=== PATIENT | male | born 1955 | race Caucasian/White ===

== ENCOUNTER 2023-11-12 08:21 | Outpatient (CLI) | payer MEDICARE, BC | END 2023-11-12 08:22 | disposition home or self-care (01) | LOC: NM 08:21 | PROVIDERS: ATTEND Urology | DX: C61 Malignant neoplasm of prostate (principal) | CPT/HCPCS: 78306; A9503 ==

== ENCOUNTER 2024-05-05 13:23 | Outpatient (CLI) | payer MEDICARE, BC | END 2024-05-05 13:24 | disposition home or self-care (01) | LOC: BICMAMMO 13:23 | PROVIDERS: ATTEND Internal Medicine Hematology & Oncology | DX: N63.25 Unspecified lump in the left breast, overlapping quadrants (principal) | CPT/HCPCS: 76642; 77066; G0279 ==

== ENCOUNTER 2024-09-11 11:45 | Outpatient (CLI) | payer MEDICARE, BC | END 2024-09-11 11:46 | disposition home or self-care (01) | LOC: PET 11:45 | PROVIDERS: ATTEND Internal Medicine Hematology & Oncology | DX: C61 Malignant neoplasm of prostate (principal) | CPT/HCPCS: 78815; A9552; A9595 ==